=== PATIENT | female | born 2000 | race Two or more races ===

== ENCOUNTER 2024-06-04 06:45 | Day surgery (SDC) | payer BC, MEDICAID, SELFPAY ==
[2024-06-03 13:47] LABS: HCG Qualitative,Urine Negative
[2024-06-04] VITALS (9 sets, daily range): BP systolic 101–116; BP diastolic 62–72; PULSE 62–88; RESP 14–22; TEMP 36.2–36.9; O2SAT 100; BMI 19.3
[2024-06-04] MEDS: SODIUM CHLORIDE 0.9% 500 ML 500 ML 20 ML IV (07:40)
[2024-06-04] MEDS: DiphenhydrAMINE INJ 50 MG/ML VIAL 25 MG IV (07:40)
[2024-06-04] MEDS: MIDAZOLAM INJ 1 MG/ML VIAL 2 ML (ASD USE ONLY) 2 MG IV (07:43)
[2024-06-04] MEDS: fentaNYL CIT INJ 50 mCg/ML AMP 2ML (ASD USE ONLY) IV (07:45)
== END 2024-06-04 08:37 | disposition home or self-care (01) ==
PROVIDERS: Referring Provider Surgery; Visit Provider Surgery
PROC: 0DBE8ZX Excision of Large Intestine, Via Natural or Artificial Opening Endoscopic, Diagnostic (ICD-10-PCS; CPT 45380; principal; 2024-06-04 07:30)
DX: K64.2 Third degree hemorrhoids (principal)
CPT/HCPCS: 45378; 81025; J1200; J2250; J3010; J7040